=== PATIENT | male | born 1995 | race Caucasian/White ===

== ENCOUNTER 2017-09-09 15:19 | Emergency (ER) | payer OTHER | END 2017-09-09 17:49 | disposition home or self-care (01) | LOC: FTE 15:19 | DX: S52.301A Unspecified fracture of shaft of right radius, initial encounter for closed fracture (principal); J45.909 Unspecified asthma, uncomplicated; F17.210 Nicotine dependence, cigarettes, uncomplicated; W01.0XXA Fall on same level from slipping, tripping and stumbling without subsequent striking against object, initial encounter; Y92.9 Unspecified place or not applicable | CPT/HCPCS: 73090; 73090-RT; 99283-25 ==

== ENCOUNTER 2017-11-02 13:58 | Day surgery (SDC) | payer OTHER ==
[~2017-11-02 13:58] MED LIST: DEXAMETHASONE 4 MG/ML 1 ML INJ; ONDANSETRON 4 MG INJ
[2017-11-02] MEDS ORDERED: ROCURONIUM 50 MG INJ (14:25)
[2017-11-02] MEDS ORDERED: PROPOFOL 100 ML (14:25)
[2017-11-02] MEDS ORDERED: ROPIVACAINE 0.5 % 30 ML VIAL (14:25)
[2017-11-02] MEDS: LACTATED RINGER'S 1,000 ML IV* (15:01)
[2017-11-02] MEDS ORDERED: MIDAZOLAM 1 MG/ML 2 ML INJ (17:39)
[2017-11-02] MEDS: CEFAZOLIN 2 GM/50 ML (PMX) 50 ML IVPB (18:00)
[2017-11-02] MEDS ORDERED: CEFAZOLIN 1 GM INJ (18:03)
[2017-11-02] MEDS ORDERED: POLYMYXIN/BACITRACIN 1L IRRIG (18:36)
[2017-11-02] MEDS ORDERED: SUGAMMADEX SODIUM 200 MG/2 ML VIAL IV (19:08)
[2017-11-02] MEDS ORDERED: EPHEDrine SULFATE 50 MG/5 ML SYG IV (19:30)
[2017-11-02] MEDS ORDERED: MIDAZOLAM 1 MG/ML 2 ML INJ IV (19:30)
[2017-11-02] MEDS ORDERED: KETOROLAC 30 MG INJ IV (19:30)
[2017-11-02] MEDS ORDERED: ALBUTEROL 0.083% (NEB) 2.5 MG/3 ML AMP HHN (19:30)
[2017-11-02] MEDS ORDERED: MEPERIDINE 25 MG INJ IV (19:30)
[2017-11-02] MEDS ORDERED: hydrALAzine 20 MG INJ IV (19:30)
[2017-11-02] MEDS ORDERED: OXYCODONE/ACETAMINOPHEN (5/325) TAB PO ×2 (19:30)
[2017-11-02] MEDS ORDERED: ONDANSETRON 4 MG INJ IV (19:30)
[2017-11-02] MEDS ORDERED: LABETALOL HCL 20MG INJ IV (19:30)
[2017-11-02] MEDS ORDERED: DIPHENHYDRAMINE 50 MG INJ IV (19:30)
[2017-11-02] MEDS ORDERED: FENTAnyl 50 MCG/ML VIAL IV ×2 (19:30)
[2017-11-02] MEDS ORDERED: HYDROmorphONE 1 MG/5 ML IV SYRINGE IV ×2 (19:30)
[2017-11-02] MEDS: HYDROmorphONE 1 MG/5 ML IV SYRINGE IV (19:42)
[2017-11-02] MEDS: FENTAnyl 50 MCG/ML VIAL IV (19:42)
[2017-11-02] MEDS: METOCLOPRAMIDE 10 MG INJ IV (19:42)
== END 2017-11-02 21:37 | disposition home or self-care (01) ==
LOC: SDS 13:58
DX: S52.301D Unspecified fracture of shaft of right radius, subsequent encounter for closed fracture with routine healing (principal); X58.XXXD Exposure to other specified factors, subsequent encounter; S63.011D Subluxation of distal radioulnar joint of right wrist, subsequent encounter
CPT/HCPCS: 25515; 73110-RT